=== PATIENT | female | born 1985 | race Caucasian/White ===

== ENCOUNTER 2020-10-10 19:14 | Emergency (ER) | payer SELFPAY ==
[~2020-10-10] VITALS: Ht 170.2 cm; Wt 113.6 kg
[2020-10-10 20:55] VITALS: BP 132/75
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
--- NOTE | 2020-10-12 11:51 | EKG ---
[facility] [address] [place] [address] Test Date: 2020-10-10 Test Time: 20:01:02 Pat Name: DARIELA YANEZ Department: Room: Gender: F Fur Grader: : 1985 Requested By: SHERIE WEISS Order Number: [id number] Reading MD: Naldo Feliciano Measurements Intervals [place] Rate: 75 P: 31 OR: 134 QRS: 63 QRSD: 86 T: 48 QT: 384 QTc: 431 Interpretive Statements SINUS RHYTHM NORMAL ECG RI6.02 No previous ECG available for comparison Electronically Signed On 10-13-2020 9:49:44 VENEREAL DISEASE INVESTIGATOR by Naldo Feliciano
== END 2020-10-10 21:28 | disposition left against medical advice (07) ==
LOC: ER 19:14
DX: R06.02 Shortness of breath (principal); R11.2 Nausea with vomiting, unspecified; J02.9 Acute pharyngitis, unspecified
CPT/HCPCS: 93005; 99285-25